=== PATIENT | female | born 1970 | race Hispanic/Latino ===

== ENCOUNTER → 2020-06-17 | Day surgery (SDC) | payer OTHER ==
[~2020-06-17] MED LIST: ALEVE220 M1 PO; FENTANYL CITRATE/PF 100MCG/2 ML INJ ONE; IRON PO; LIDOCAINE HCL 2% LOCAL INJ 5 ML SDV VIAL INJ ONE; MIDAZOLAM HCL 2 MG/2 ML VIAL ONE; PROPOFOL IV EMULSION 10 MG/ML 20 ML VIAL ONE
[2020-06-17 07:42] VITALS: BP 110/78
== END | disposition home or self-care (01) ==
LOC: OR 05:33
PROVIDERS: ATTEND Internal Medicine Gastroenterology
DX: Z12.11 Encounter for screening for malignant neoplasm of colon (principal); D12.3 Benign neoplasm of transverse colon; K57.30 Diverticulosis of large intestine without perforation or abscess without bleeding; K64.8 Other hemorrhoids; Z71.3 Dietary counseling and surveillance; E66.9 Obesity, unspecified; Z01.810 Encounter for preprocedural cardiovascular examination; Z01.812 Encounter for preprocedural laboratory examination; Z20.828 Contact with and (suspected) exposure to other viral communicable diseases; Z68.33 Body mass index [BMI] 33.0-33.9, adult
CPT/HCPCS: 45380; 93005; J2001; J2250; J2704; J3010; U0002; 45378